=== PATIENT | female | born 1990 | race Caucasian/White ===

== ENCOUNTER 2017-05-18 17:35 | Emergency (ER) | payer OTHER ==
[2017-05-18] MEDS ORDERED: DEXAMETHASONE 10 MG/ML VIAL IVP ONE (17:46)
[2017-05-18] MEDS ORDERED: METOCLOPRAMIDE 10 MG/2 ML VIAL IVP ONE (17:46)
[2017-05-18] MEDS ORDERED: NS 1,000 ML IV ONE (17:46)
[2017-05-18] MEDS ORDERED: KETOROLAC 30 MG/1 ML SDV IVP ONE (17:46)
--- NOTE | 2017-05-18 17:50 | EDPHY ---
H & P Time Seen by Provider: 05/18/17 17:42 HPI/ROS: HPI Migraine headache. 26-year-old female by private vehicle. She has a long history of migraine headaches. She reports gradual onset of a typical migraine headache which she describes as left side and frontal onset 3-4 days ago. She has not been able to relieve it with her home medications. She has had some associated nausea but no vomiting. She describes the headache as identical to previous headaches in the past. She reports she has been seen in the emergency department in the past for her migraine headaches. ROS: Constitutional: No fever, no chills. No weakness. Eyes: No discharge. No changes in vision. ENT: No sore throat. No nasal congestion or rhinorrhea. Respiratory: No cough. No shortness of breath. Cardiac: No chest pain, no palpitations. Gastrointestinal: No abdominal pain, no vomiting, no diarrhea. Musculoskeletal: No back pain. No neck pain. No myalgias or arthralgias. Skin: No rashes. Neurological: As above. No focal weakness or altered sensation. Past medical history: Migraine headaches. Social history: Nonsmoker. No alcohol. Here by herself. Physical Exam: General Appearance: Alert, she appears uncomfortable. This patient is responding to questions appropriately and in full sentences. This patient appears well-hydrated and well-nourished. Eyes: Pupils equal and round no pallor or injection. No lid edema, erythema or injection. No nystagmus. No photophobia. ENT, Mouth: Mucous membranes are moist. The pharyngeal tissues are unremarkable. No edema or swelling. No asymmetry suggestive of abscess. No erythema or exudates. Gastrointestinal: Abdomen is soft and nontender, no masses, bowel sounds normal. No focal tenderness at McBurney's point. No Gee sign. Neurological: Motor sensory function is grossly intact. Cranial nerves are normal. Gait is normal. Skin: Warm and dry, no rashes. Musculoskeletal: Neck is supple and nontender. No pain on flexion of her neck. Extremities are symmetrical. All joints range without pain or impingement. Psychiatric: No agitation. No depression. Database: EKG: Imaging: Procedures: Emergency department course: Vital signs reviewed and are normal. Medication allergies reviewed. She has no contraindications to NSAIDs. No history of renal dysfunction. An IV was placed. She was started on IV normal saline with 1 L to be given over the next hour. She will be given 10 mg of IV Decadron, 30 mg of IV Toradol, 10 mg of IV Reglan and 25 mg of IV Benadryl. 6:50 p.m., patient re-evaluated. Resting comfortably at this time. She reports resolution of her headache. Neck is supple. No pain on flexion of the neck. She feels comfortable going home and I feel she is safe for discharge. Follow-up and return to emergency department precautions reviewed with her. All of her questions were answered. She was discharged in good condition. Differential Diagnosis: The differential diagnosis on this patient includes but is not limited to migraine headache. Subarachnoid hemorrhage, temporal arteritis, meningitis, encephalitis, cavernous sinus thrombosis, sagittal sinus thrombosis unlikely. This represents a partial list of diagnoses considered. These considerations are based on history, physical exam, past history, reassessment and diagnostic testing. Smoking Status: Never smoked Constitutional: Initial Vital Signs Temperature (C) 36.9 C 05/18/17 17:45 Heart Rate 57 L 05/18/17 17:45 Respiratory Rate 18 05/18/17 17:45 Blood Pressure 133/81 H 05/18/17 17:45 O2 Sat (%) 97 05/18/17 17:45 O2 Delivery Mode Room Air Allergies/Adverse Reactions: No Known Allergies Allergy (Unverified 05/18/17 17:43) Home Medications: Medication Instructions Recorded DULoxetine 05/18/17 Propranolol HCl ER 05/18/17 Trokendi 05/18/17 Medical Decision Making - Data Points Medications Given: Discontinued Medications Dexamethasone (Decadron Injection) 10 mg IVP EDNOW ONE Stop: 05/18/17 17:47 Last Admin: 05/18/17 18:01 Dose: 10 mg Diphenhydramine HCl (Benadryl Injection) 25 mg IVP EDNOW ONE Stop: 05/18/17 17:47 Last Admin: 05/18/17 18:03 Dose: 25 mg Sodium Chloride (Ns) 1,000 mls @ 0 mls/hr IV ONCE ONE; Wide Open PRN Reason: Protocol Stop: 05/18/17 17:47 Last Admin: 05/18/17 18:07 Dose: 1,000 mls Ketorolac Tromethamine (Toradol) 30 mg IVP EDNOW ONE Stop: 05/18/17 17:47 Last Admin: 05/18/17 18:05 Dose: 30 mg Metoclopramide HCl (Reglan Injection) 10 mg IVP EDNOW ONE Stop: 05/18/17 17:47 Last Admin: 05/18/17 18:08 Dose: 10 mg Departure - Departure Disposition: Home, Routine, Self-Care Clinical Impression: Migraine headache Condition: Good Instructions: Migraine Headache (ED) Additional Instructions: Read and follow provided instructions. Follow-up with your primary care physician or neurologist in 1-2 days for re- evaluation. I provided you with a neurologist for referral if needed. Return to the emergency department for worsening headache, neck pain, vomiting, fever or other serious concerns. Referrals: JOSEPH BOSCH [Primary Care Provider] - As per Instructions Rafael Siegel MD [Medical Doctor] - As per Instructions
[2017-05-18 18:43] VITALS: RESP 16
[2017-05-18 19:33] VITALS: BP 96/48; PULSE 52; TEMP 98.1; O2SAT 98
== END 2017-05-18 19:40 | disposition home or self-care (01) ==
LOC: CED 17:35
DX: G43.909 Migraine, unspecified, not intractable, without status migrainosus (principal); E86.9 Volume depletion, unspecified
CPT/HCPCS: 96374; J1100; J1200; J1885; J2765

== ENCOUNTER → 2017-06-02 | Outpatient (CLI) | payer BC, OTHER | LOC: FCPNEURO 21:00 | PROVIDERS: ATTEND Internal Medicine Pulmonary Disease | DX: G47.10 Hypersomnia, unspecified (principal) ==

== ENCOUNTER 2018-07-02 15:32 | Emergency (ER) | payer OTHER ==
[2018-07-02] MEDS ORDERED: ACETAMINOPHEN 500 MG TAB PO ONE ×2 (16:01)
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
[2018-07-02 16:49] VITALS: BP 110/63
== END 2018-07-02 16:40 | disposition home or self-care (01) ==
LOC: CED 15:32
DX: S06.0X0A Concussion without loss of consciousness, initial encounter (principal); S16.1XXA Strain of muscle, fascia and tendon at neck level, initial encounter; V49.09XA Driver injured in collision with other motor vehicles in nontraffic accident, initial encounter